=== PATIENT | female | born 1990 | race Caucasian/White ===

== ENCOUNTER 2016-09-26 19:39 | Emergency (ER) | payer MEDICARE, OTHER ==
[~2016-09-26 19:39] MED LIST: ABILIFY5 MG PO; AMOXICILLIN PO; AMOXIL500 M1 PO; BACTRIM DS TABL1 TA2 PO; BCP PO; CELEXA20 MG PO; CLOTRIMAZOLE100 MG VG; DESYREL100 MG PO; DESYREL50 MG DOB; EFFEXOR75 M3 PO; ELIMITE60 GM TOP; FLEXERIL10 MG PO; GEODON60 MG PO; IBUPROFEN800 MG PO; LAMICTAL PO; LEXAPRO PO; LORTAB 5/500 TA1 TA1 PO; MUCINEX D ER T1 EAC1 PO; NAPROSYN500 MG PO; NAPROXEN PO; NAPROXEN500 M1 PO; NO MEDICATIONS; PHENERGAN25 M1 PO; PHENERGAN25 MG PO; PREDNISONE PO; PRENATAL ONE T1 EACH PO; PRENATAL1 TA1 PO; PROMETHAZINE D118 ML PO; PROZAC PO; PYRIDIUM100 MG PO; TRAZODONE HCL100 MG PO; TRAZODONE PO; TRILEPTAL PO; TYLENOL #3 PO; VEETIDS 500500 M1 PO; VISTARIL PO; VOLTAREN75 MG PO; ZITHROMAX1 G/PKT PO
== END 2016-09-26 22:05 | disposition home or self-care (01) ==
LOC: CFTX 19:39 → CED 19:39 → CFTX 20:45
DX: K04.7 Periapical abscess without sinus (principal); F32.9 Major depressive disorder, single episode, unspecified; F31.9 Bipolar disorder, unspecified
CPT/HCPCS: 96372; 99283; J1885

== ENCOUNTER 2016-10-15 01:39 | Emergency (ER) | payer MEDICARE, OTHER ==
--- NOTE | ~2016-10-15 | CR2 ---
[facility] A Service of [facility] RADIOLOGY TEXT RESULTS PATIENT: NAHID LIRIANO LOCATION: SED : 92 UNIT #: [id number] AGE: [address]: Cristhian Brown MD SEX: F ORDER DR: [id number] [place] [id number] E MR#: [id number] Acc #: [id number] NAME: NAHID LIRIANO : 1990 SEX: F STUDY DATE/TIME: 10/15/2016 3:05 UNIT: SED ROOM: STUDY DESCRIPTION: CR Abdomen Acute Series Attending Physician: Cristhian Brown M.D. Ordering Physician: Cristhian Brown M.D. Primary Care Physician: Primary Care Physician No MEDICAL IMAGING REPORT This report is preliminary unless electronic signature is present. EXAM Acute abdomen series, 10/15/2016 HISTORY 26-year-old female in the ED complaining of several-month history of dizziness, weakness, chest pain and abdomen pain. She states this has been present since May 2016. TECHNIQUE Flat and upright abdomen series with AP upright chest x-ray. FINDINGS Small calculus superimposed over the mid portion left kidney. Bowel gas pattern is normal. No evidence of bowel obstruction, adynamic ileus or bowel perforation. No active disease in the chest. The lungs are clear. IMPRESSION 1. Small calculus left mid kidney. 2. Normal bowel gas pattern. 3. Negative chest. Dictated by... Juan Sakrar M.D. THIS IS AN ELECTRONICALLY VERIFIED REPORT Juan Sarkar M.D. at 10/15/2016 5:52 AM CHERRYW/cassandra [facility] A Service [facility] RADIOLOGY TEXT RESULTS PATIENT: NAHID LIRIANO LOCATION: SED : 92 UNIT #: [id number] AGE: [address]: Cristhian Brown MD SEX: F ORDER DR: TD: 10/15/2016 04:17 JOB #: [id number] MEDICAL IMAGING REPORT Page 1 of 1
--- NOTE | ~2016-10-15 | EKG ---
PATIENT: NAHID LIRIANO UNIT #: [id number] Ventricular Rate: 83 BPM Atrial Rate: 83 BPM P-R Interval: 180 ms QRS Duration: 90 ms Q-T Interval: 400 ms QTC Calculation(Bezet): 470 ms P [place]: 14 degrees Calculated R [place]: 3 degrees Calculated T [place]: 21 degrees Diagnosis Line: Normal sinus rhythm Diagnosis Line: Normal ECG Diagnosis Line: When compared with ECG of 01-MAY-2016 01:37, Diagnosis Line: No significant change was found Diagnosis Line: Confirmed by LANCE KIM MD ([id number]) on Diagnosis Line: 10/15/2016 10:51:54 AM INTERPRETING MD: JUDY FLANNERY
[2016-10-15] MEDS ORDERED: CELEXA20 MG (01:47)
[2016-10-15] MEDS ORDERED: NEURONTIN800 MG (01:47)
[2016-10-15] MEDS ORDERED: IRON325 MG (01:48)
[2016-10-15 02:24] LABS: URINE APPEARANCE HAZY; URINE BILIRUBIN NEG (NEG); URINE BLOOD NEG (NEG); URINE COLOR YELLOW; URINE GLUCOSE NEG (NORM); URINE KETONE NEG (NEG); URINE LEUKOCYTE ESTERASE NEG (NEG); URINE NITRATE NEG (NEG); URINE PROTEIN NEG (NEG); URINE SPECIFIC GRAVITY 1.025 (1.003-1.035); URINE UROBILINOGEN 0.2 MG/DL (NORM)
[2016-10-15 02:27] LABS: MICRO INDICATED? NO; URINE SOURCE CLEAN CATCH
[2016-10-15 02:30] LABS: BASOPHIL# 0.1 X10e3 (0-0.3); BASOPHIL% 0.6 % (0-2.5); EOSINOPHIL# 0.3 X10e3 (0-0.7); EOSINOPHIL% 2.7 % (0.0-7.0); HEMATOCRIT 24.1 % (35.0-45.0); LYMPHOCYTE# 3.3 X10e3 (1.0-3.5); MEAN CELL VOLUME 59.9 FL (83-96); MEAN CORPUSCULAR HEMOGLOBIN 17.5 PG (28-34); MEAN CORPUSCULAR HGB CONC 29.3 g/dL (30-36); MEAN PLATELET VOLUME 8.3 FL (6.5-11.5); MONOCYTE# 0.8 X10e3 (0-1.0); MONOCYTE% 7.7 % (3.0-12.0); NEUTROPHIL# 5.9 X10e3 (1.5-7.1); PLATELET COUNT 316 X10e3 (140-420); RED BLOOD COUNT 4.02 X10e (3.90-5.30); RED CELL DISTRIBUTION WIDTH 19.9 % (11.0-15.5); WHITE BLOOD COUNT 10.4 X10e3 (4.0-10.5)
[2016-10-15 02:32] LABS: INR 1.1; PROTHROMBIN TIME (PATIENT) 12.5 SECONDS (9.5-12.4)
[2016-10-15 02:34] LABS: DIFF IND NO
[2016-10-15 02:37] LABS: POC - CKMB <1.0 ng/mL (0.0-7.9)
[2016-10-15 02:38] LABS: POC - TROPONIN <0.05 ng/mL (<=0.05)
[2016-10-15 02:39] LABS: PARTIAL THROMBOPLASTIN TIME 28.3 SECONDS (25.6-38.1)
[2016-10-15 02:42] LABS: ALBUMIN SERUM 4.4 g/dL (3.5-5.0); ALKALINE PHOSPHATASE 68 U/L (32-92); ALT (SGPT) 11 U/L (10-40); AST (SGOT) 14 U/L (10-42); BILIRUBIN,TOTAL 0.3 mg/dL (0.2-2.0); BLOOD UREA NITROGEN 16 mg/dL (9-23); CARBON DIOXIDE 26 mmol/L (22-31); CHLORIDE 103 mmol/L (100-111); CREATININE SERUM 0.8 mg/dL (0.6-1.4); GLOM FILT RATE Estimated 103.3 mL/min (>60); GLUCOSE FASTING 87 mg/dL (70-110); LIPASE 29 U/L (22-51); POTASSIUM 3.3 mmol/L (3.5-5.1); SODIUM 137 mmol/L (135-145)
[2016-10-15 02:45] LABS: BILIRUBIN, DIRECT <0.1 mg/dL (0.0-0.2); BILIRUBIN,INDIRECT 0.2 mg/dL (0.0-0.9)
== END 2016-10-15 06:56 | disposition hospice, home (50) ==
LOC: SED 01:39
PROVIDERS: Emergency Medicine
DX: K92.2 Gastrointestinal hemorrhage, unspecified (principal); D64.9 Anemia, unspecified; F31.9 Bipolar disorder, unspecified; F41.9 Anxiety disorder, unspecified; Z88.5 Allergy status to narcotic agent; Z88.8 Allergy status to other drugs, medicaments and biological substances
CPT/HCPCS: 36415; 74022; 80048; 80076; 81003; 82553; 83690; 84484; 84703; 85025; 85610; 85730; 93005; 96361; 96374; 99284; 99285; C9113